=== PATIENT | female | born 1995 | race Caucasian/White ===

== ENCOUNTER 2017-02-04 15:34 | Emergency (ER) | payer SELFPAY ==
[~2017-02-04] VITALS: Ht 172.7 cm; Wt 77.1 kg
[2017-02-04 16:48] LABS: BASOPHIL % 0.2 % (0-2); PLATELET COUNT 306 x10^3mcL (130-400)
[2017-02-04 16:50] LABS: RED CELL DISTRIBUTION WIDTH 17.9 % (11.5-14.5)
[2017-02-04 16:53] LABS: CALCIUM 8.9 mg/dL (8.5-10.1); CARBON DIOXIDE 27.1 mmol/L (21-32); CHLORIDE SERUM 104 mmol/L (98-107); CREATININE SERUM 0.7 mg/dL (0.6-1.0); GFR1 > 60 mL/min; GLUCOSE SERUM 103 mg/dL (74-106); POTASSIUM SERUM 3.7 mmol/L (3.5-5.1); SODIUM SERUM 140 mmol/L (136-145)
[2017-02-04 16:57] LABS: ALBUMIN 4.2 g/dL (3.4-5.0); ALKALINE PHOSPHATASE 95 U/L (46-116); ALT/SGPT 28 U/L (14-59); AMYLASE 24 U/L (25-115); AST/SGOT 31 U/L (15-37); BILIRUBIN TOTAL 0.48 mg/dL (0.20-1.00); LIPASE 98 IU/L (73-393)
[2017-02-04 19:32] VITALS: BP 123/51
== END 2017-02-04 19:33 | disposition home or self-care (01) ==
LOC: ED 15:34
PROVIDERS: Emergency Medicine
DX: A08.4 Viral intestinal infection, unspecified (principal); K21.9 Gastro-esophageal reflux disease without esophagitis
CPT/HCPCS: 83880; C9113; G0480; J2405; J7030

== ENCOUNTER 2018-05-14 01:59 | Emergency (ER) | payer MEDICAID ==
[~2018-05-14] VITALS: Ht 172.7 cm; Wt 82.1 kg
[2018-05-14 02:03] VITALS: BP 134/80; Ht 172.7 cm; Wt 82.1 kg
== END 2018-05-14 02:53 | disposition home or self-care (01) ==
LOC: ED 01:59
DX: L21.0 Seborrhea capitis (principal)

== ENCOUNTER 2018-08-15 02:24 | Emergency (ER) | payer OTHER ==
[~2018-08-15] VITALS: Ht 172.7 cm; Wt 80.3 kg
[2018-08-15 02:26] VITALS: Ht 172.7 cm; Wt 80.3 kg
[2018-08-15 03:38] VITALS: BP 132/74
== END 2018-08-15 03:38 | disposition home or self-care (01) ==
LOC: ED 02:24
DX: S61.412A Laceration without foreign body of left hand, initial encounter (principal); W26.8XXA Contact with other sharp object(s), not elsewhere classified, initial encounter; Y93.89 Activity, other specified; Y92.89 Other specified places as the place of occurrence of the external cause; Y99.8 Other external cause status
CPT/HCPCS: 90715